=== PATIENT | female | born 1985 | race African-American/Black ===

== ENCOUNTER 2017-06-01 17:41 | Emergency (ER) | payer SELFPAY ==
[~2017-06-01] VITALS: Ht 154.9 cm; Wt 70.0 kg
[2017-06-01 17:45] VITALS: BP 135/73; PULSE 82; RESP 12; TEMP 98.8; O2SAT 100
[2017-06-01 20:04] LABS: BLOOD, URINE NEG (NEG); GLUCOSE,URINE NEG (NEG); KETONE, URINE NEG (NEG); NITRITE,URINE NEG (NEG); PH, URINE 7.5 (5.0-8.5); URINE COLOR LIGHT-YELLOW (YELLW/STRAW)
[2017-06-01 20:05] LABS: COMMENT (UR) CULT NOT INDICATED; CULTURE IF INDICATED CULT NOT INDICATED
--- NOTE | 2017-06-01 20:28 | PD ---
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 Per patient she's had lower abdominal discomfort as well as vaginal discharge for the past week. Per patient his been ongoing issue for some time. Per patient she's follow with her doctor who keeps treating her with these infections and UTIs. She has not had per patient any chest or for discharge. The patient her pain is 4 out of 10. Denies any fevers chills or sweats. No allergies to medication. No chest or shortness of breath. No other medical issues at this time. PFSH Past Medical History ?: Not Menopausal: No Social History Alcohol Use: No Tobacco Use: No Substance Use: No Allergies-Medications (Allergen,Severity, Reaction): Coded Allergies: No Known Allergies (Unverified , 03/29/16) Reported Meds & Prescriptions Reported Meds & Active Scripts Active No Active Prescriptions or Reported Medications Review of Systems Except as stated in HPI: all other systems reviewed are Neg Physical Exam Narrative GENERAL: SKIN: Warm and dry. HEAD: Atraumatic. Normocephalic. EYES: Pupils equal and round. No scleral icterus. No injection or drainage. ENT: No nasal bleeding or discharge. Mucous membranes pink and moist. NECK: Trachea midline. No JVD. CARDIOVASCULAR: Regular rate and rhythm. RESPIRATORY: No accessory muscle use. Clear to auscultation. Breath sounds equal bilaterally. GASTROINTESTINAL: Abdomen soft, non-tender, nondistended. Hepatic and splenic margins not palpable. Pelvic exam: The with female nurse present. Patient does have yellowish greenish discharge from the clitoris. No obvious cervical motion tenderness. No adnexal tenderness. MUSCULOSKELETAL: Extremities without clubbing, cyanosis, or edema. No obvious deformities. NEUROLOGICAL: Awake and alert. No obvious cranial nerve deficits. Motor grossly within normal limits. Five out of 5 muscle strength in the arms and legs. Normal speech. PSYCHIATRIC: Appropriate mood and affect; insight and judgment normal. Data Data Last Documented VS Vital Signs Date Time Temp Pulse Resp B/P (MAP) Pulse Ox O2 Delivery O2 Flow Rate FiO2 06/01/17 17:45 98.8 82 12 135/73 (93) 100 Orders Orders Wet Prep Profile (06/01/17 19:34) Gc And Chlamydia Pcr (06/01/17 19:34) Urinalysis - C+S If Indicated (06/01/17 19:34) Ed Urine Pregnancytest Poc (06/01/17 19:34) Azithromycin Powd Pack (Zithromax Powd P (06/01/17 20:30) Rocephin 250mg Vial Im X 1 (06/01/17 20:30) Lidocaine 1% Inj (50 Ml) (Xylocaine 1% I (06/01/17 20:30) Labs Laboratory Tests Test 06/01/17 19:36 Urine Color LIGHT-YELLOW Urine Turbidity CLEAR Urine pH 7.5 Urine Specific [place] 1.007 Urine Protein NEG mg/dL Urine Glucose (UA) NEG mg/dL Urine Ketones NEG mg/dL Urine Occult Blood NEG Urine Nitrite NEG Urine Bilirubin NEG Urine Urobilinogen LESS THAN 2.0 MG/DL Urine Leukocyte Esterase NEG Urine RBC 1 /hpf Microscopic Urinalysis Comment CULT NOT INDICATED Clue Cells (Wet Prep) NONE SEEN Vaginal Trichomonas (Wet Prep) NONE SEEN Vaginal Yeast (Wet Prep) NONE SEEN MDM Medical Decision Making Medical Screen Exam Complete: Yes Emergency Medical Condition: Yes Medical Record Reviewed: Yes Interpretation(s) UA negative wet prep negative Differential Diagnosis Gonorrhea versus chlamydia versus bacterial vaginosis versus yeast infection versus UTI Narrative Course 32-year-old female that presents to the ED for evaluation of vaginal discharge. Patient was properly examined and was found to have signs and symptoms consistent appears to be vaginitis. Pelvic exam demonstrated discharge. This appears to be infectious. Patient does have a history of PID in the past. Patient does complain of some lower abdominal pain as well. Urine and wet probe were negative. Possible STD likely. Patient will be given ceftriaxone here and azithromycin here. She was given a prescription for diclofenac sodium for pain. She was told to follow closely with PCP. See ED worsening symptoms. Pelvic rest. Diagnosis Primary Impression: Vaginitis Qualified Codes: N76.0 - Acute vaginitis Patient Instructions: General Instructions Additional Instructions: Take medication as prescribed. Follow with PCP. See ED worsening symptoms. No sex for 2 weeks until better. Med/Other Pt SpecificInfo: Prescription(s) given Scripts No Active Prescriptions or Reported Meds Disposition: DISCHARGE HOME Condition: Stable Red Perea Jun 01, 2017 20:28
[2017-06-01] MEDS ORDERED: DICL75TA PO (20:29)
[2017-06-01] MEDS ORDERED: LIDOCAINE HCL 1% 50 ML VIAL IM ONE (20:30)
[2017-06-01] MEDS ORDERED: cefTRIAXone 250 MG VIAL IM ONE (20:30)
[2017-06-01] MEDS ORDERED: AZITHROMYCIN PWD FOR SUSP 1 GM PACKET PO ONE (20:30)
[2017-06-01 21:00] VITALS: BP 130/76
[2017-06-01 22:10] LABS: CHLAMYDIA PCR NOT DETECTED (NOT DETECT); NEISSERIA PCR NOT DETECTED (NOT DETECT)
== END 2017-06-01 21:08 | disposition home or self-care (01) ==
LOC: NEPD 17:41
DX: N76.0 Acute vaginitis (principal)
CPT/HCPCS: 81001; 84703; 87210; 87491; 87591; 96372; 99284; J0696

== ENCOUNTER 2017-06-03 14:01 | Emergency (ER) | payer SELFPAY ==
[~2017-06-03] VITALS: Ht 154.9 cm; Wt 78.0 kg
[~2017-06-03 14:01] MED LIST: DICL75TA PO
[2017-06-03 14:02] VITALS: BP 135/76; PULSE 89; RESP 14; TEMP 98.4; O2SAT 96
--- NOTE | 2017-06-03 14:09 | PD ---
Physical Exam Time Seen by Provider: 14:06 Narrative 32-year-old female presents to emergency department requesting work release to return back to work after she called out today because she had a headache and high blood pressure at home. States her blood pressure was 135/70 at home. Blood pressure 135/76 in the ER. Patient continues to complain of headache. She took bayers aspirin and headache decreased in severity. Patient seen in triage. Vital signs reviewed. Patient awaiting bed placement. Data Data Last Documented VS Vital Signs Date Time Temp Pulse Resp B/P (MAP) Pulse Ox O2 Delivery O2 Flow Rate FiO2 06/03/17 14:02 98.4 89 14 135/76 (95) [facility] Supervised Visit with ANNA: Julianna Cardoza Jun 03, 2017 14:09
--- NOTE | 2017-06-03 15:40 | PD ---
HPI Chief Complaint: Medical Clearance Time Seen by Provider: 15:35 Travel History International Travel<30 days: No Contact w/Intl Traveler<30days: No Traveled to known affect area: No History of Present Illness HPI 32-year-old female patient presents the emergency department with history of headache this morning. Patient states her blood pressure was elevated and she called her boss at work and told them that she couldn't come in due to her headache and high blood pressure. She states she took some aspirin and her headache is now gone and her blood pressure is normal 135/75 in triage no pain or other symptoms. She has no known drug allergies. She is requesting a work note to return to work. PFSH Past Medical History Menopausal: No Social History Alcohol Use: No Tobacco Use: No Substance Use: No Allergies-Medications (Allergen,Severity, Reaction): Coded Allergies: No Known Allergies (Unverified , 03/29/16) Reported Meds & Prescriptions Reported Meds & Active Scripts Active Diclofenac Sodium DR (Diclofenac Sodium) 75 Mg Tabdr 75 Mg PO BID PRN Review of Systems Except as stated in HPI: all other systems reviewed are Neg General / Constitutional: No: Fever Eyes: No: Visual changes HENT: No: Headaches Cardiovascular: No: Chest Pain or Discomfort Respiratory: No: Shortness of Breath Gastrointestinal: No: Abdominal Pain Genitourinary: No: Dysuria Musculoskeletal: No: Pain Skin: No Rash Neurologic: No: Weakness Psychiatric: No: Depression Endocrine: No: Polydipsia Hematologic/Lymphatic: No: Easy Bruising Physical Exam Narrative GENERAL: Patient appears normal. Distress. SKIN: Warm and dry. HEAD: Atraumatic. Normocephalic. EYES: Pupils equal and round. No scleral icterus. No injection or drainage. No photophobia. ENT: No nasal bleeding or discharge. Mucous membranes pink and moist. Pharynx is clear. Airway is patent. NECK: Trachea midline. Supple nontender. CARDIOVASCULAR: Regular rate and rhythm. RESPIRATORY: No accessory muscle use. Clear to auscultation. Breath sounds equal bilaterally. MUSCULOSKELETAL: Extremities without clubbing, cyanosis, or edema. No obvious deformities. NEUROLOGICAL: Awake and alert. No obvious cranial nerve deficits. Motor grossly within normal limits. Five out of 5 muscle strength in the arms and legs. Normal speech. PSYCHIATRIC: Appropriate mood and affect; insight and judgment normal. Data Data Last Documented VS Vital Signs Date Time Temp Pulse Resp B/P (MAP) Pulse Ox O2 Delivery O2 Flow Rate FiO2 06/03/17 14:02 98.4 89 14 135/76 (95) 96 MDM Medical Decision Making Medical Screen Exam Complete: Yes Emergency Medical Condition: No Differential Diagnosis History of headache. History of hypertension. Request for work normal. Malingering. Narrative Course A medical screening exam was performed: At the time of evaluation the presenting medical condition was determined not to be of an emergent nature. The patient was given the option of receiving additional care, but declined. Patient was given options for additional community resources from which to obtain care. The Patient Has Been advised to seek medical attention for their presenting complaint. The patient has been advised to return to the ER at any time if an emergent condition develops. Condition: Stable Chace Marte Jun 03, 2017 15:40
== END 2017-06-03 15:53 | disposition left against medical advice (07) ==
LOC: NEPK 14:01
DX: R51 Headache (principal)
CPT/HCPCS: 99281